=== PATIENT | male | born 1945 | race Caucasian/White ===

== ENCOUNTER 2017-09-11 21:58 | Emergency (ER) | payer MEDICARE, BC ==
[~2017-09-11] VITALS: Ht 170.2 cm; Wt 78.9 kg
[~2017-09-11 21:58] MED LIST: ASPIR 8181 MG ORAL; DIOVAN160 MG ORAL; DIOVAN40 MG PO; NORVASC10 MG PO; SYNTHROID25 MCG PO; TRICOR145 MG ORAL; TRICOR54 MG ORAL; TRICOR54 MG PO; UNOBMED; VICODIN 5-3001 EACH ORAL
[2017-09-11 22:10] VITALS: BP 132/72
[2017-09-11] MEDS ORDERED: HYDROmorphone 1mg/ml Carpuject IVP ONE (22:30)
[2017-09-11 22:54] LABS: BASOPHILS % (AUTO) 1.3 % (0.0-2.0); EOSINOPHILS % (AUTO) 3.4 % (0.0-3.0); LYMPHOCYTES % (AUTO) 24.3 % (20.0-45.0); MEAN CORPUSCULAR HEMOGLOBIN 29.2 PG (27.0-31.0); MEAN CORPUSCULAR HGB CONC 31.8 G/DL (32.0-36.0); MEAN CORPUSCULAR VOLUME 92 FL (80-99); MEAN PLATELET VOLUME 6.1 FL (6.5-10.1); MONOCYTES % (AUTO) 10.6 % (1.0-10.0); NEUTROPHILS % (AUTO) 60.4 % (45.0-75.0); PLATELET COUNT 201 K/UL (150-450); RED CELL DISTRIBUTION WIDTH 11.5 % (11.6-14.8); WHITE BLOOD COUNT 6.7 K/UL (4.8-10.8)
[2017-09-11 23:09] LABS: ALANINE AMINOTRANSFERASE 36 U/L (12-78); ALBUMIN/GLOBULIN RATIO 1.1 (1.0-2.7); ANION GAP 9 mmol/L (5-15); ASPARTATE AMINO TRANSFERASE 24 U/L (15-37); CALCIUM 9.4 MG/DL (8.5-10.1); CARBON DIOXIDE 27 MMOL/L (21-32); CHLORIDE 108 MMOL/L (98-107); CREATININE 1.4 MG/DL (0.55-1.30); LIPASE 103 U/L (73-393); POTASSIUM 4.2 MMOL/L (3.5-5.1); SODIUM 144 MMOL/L (136-145); TOTAL PROTEIN 7.5 G/DL (6.4-8.2)
[2017-09-12] MEDS ORDERED: HYDROmorphone 1mg/ml Carpuject IVP ONE
[2017-09-12] MEDS ORDERED: Doxazosin 4mg tab ORAL ONE (02:44)
[2017-09-12 03:15] VITALS: BP 124/78
[2017-09-12 05:56] VITALS: BP 137/68
[2017-09-12] MEDS ORDERED: Doxazosin 4mg tab ORAL SCH (09:00)
--- NOTE | 2017-09-12 09:06 | Diagnostic Imaging Report ---
Indication: Abdominal pain Technique: Supine view of the abdomen Comparison: 08/05/2016 Findings: Density projected over the the iliac bone presumably represents patient's ileostomy. Surgical clips are seen in the pelvis. A surgical clip is seen in the left upper quadrant. There is a paucity of bowel gas. No gaseous distention of large or small bowel demonstrated. Degenerative changes of the lumbar spine and hips are incidentally noted. Impression: Postsurgical changes, as described No acute process
--- NOTE | 2017-09-12 09:08 | Diagnostic Imaging Report ---
Indication: Pain Technique: 3 views of the lumbar spine Comparison: None Findings:Vertebral body heights are preserved. There is mild multilevel degenerative disc narrowing, somewhat more extensive degenerative proliferative change. Bony alignment is normal. No acute fractures. No dislocations. Sacroiliac joint spaces are clear. Sacral arches are preserved. Surgical clips are seen in the pelvis Impression:Mild degenerative changes, as described No acute bony trauma
--- NOTE | 2017-09-13 07:01 | Emergency Room Report ---
History of Present Illness General Chief Complaint: Abdominal Pain Source: Patient Present Illness HPI 72-year-old male presents ED complaining of abdominal pain. Patient states that he has a colostomy and states that it is blocked. Started approximately 8 hours ago. Patient states he must have eaten a large piece of food which caused this. He states this has happened several times in the past. Patient states he comes to emergency room for IV fluids and pain medications and allowed to rest. Patient states he does not want to be admitted. Patient states pain is an 8/10, sharp, nonradiating. Denies fevers or chills. Denies nausea or vomiting. States his GI doctor is Dr. Ernandez. No other aggravating relieving factors. Denies any other system symptoms Allergies: Coded Allergies: No Known Allergies (Unverified , 10/25/12) Patient History Past Medical History: other Past Surgical History: other - colostomy Pertinent Family History: none Social History: Denies: smoking, alcohol use, drug use Immunizations: UTD Reviewed Nursing Documentation: PMH: Agreed, PSxH: Agreed Nursing Documentation-PMH Past Medical History: No History, Except For Hx Cardiac Problems: Yes Hx Hypertension: Yes Hx Cancer: No Hx Gastrointestinal Problems: Yes - Pain abd area Hx Neurological Problems: No Review of Systems All Other Systems: negative except mentioned in HPI Physical Exam Vital Signs Date Time Temp Pulse Resp B/P (MAP) Pulse Ox O2 Delivery O2 Flow Rate FiO2 09/11/17 22:04 97.9 60 17 132/72 100 Room Air Sp02 EP Interpretation: reviewed, normal General Appearance: no apparent distress, alert, GCS 15, non-toxic Head: normocephalic Eyes: bilateral eye normal inspection, bilateral eye PERRL ENT: normal ENT inspection Neck: normal inspection Respiratory: chest non-tender, lungs clear, normal breath sounds, speaking full sentences Cardiovascular #1: regular rate, rhythm, no edema Gastrointestinal: normal bowel sounds, soft, non-distended, no guarding, no rebound, tenderness, other - ostomy Rectal: deferred Genitourinary: no CVA tenderness Musculoskeletal: normal inspection Neurologic: alert, oriented x3, responsive, motor strength/tone normal, sensory intact, speech normal Psychiatric: judgement/insight normal, memory normal, mood/affect normal, no suicidal/homicidal ideation Skin: normal inspection Lymphatic: normal inspection Medical Decision Making Diagnostic Impression: Primary Impression: SBO ER Course Hospital Course 72-year-old M presents to ED with abdominal pain. says his colostomy is blocked Differential diagnosis includes- chronic pain, small bowel obstruction, gastritis, Clinical course Patient placed on stretcher. After initial history and physical I ordered labs , IV fluids, pain medications and KUB Labs - no leukocytosis, electrolytes ok, LFTs normal KUB unremarkable, postsurgical changes Lspine unremarkable patient given IVFs, pain medications allowed to rest. I spoke to Dr Ernandez; he knows this patient well and states once a year he comes for IV hydration and pain medications. He agrees unless there are any acute findings patient can be discharged home patient feels better in AM wishes to be discharged I feel this is a highly complex case requiring extensive working including EKG/ Rhythm strip, Xray/CT/US, Blood/urine lab work, repeat exams while in ED, and administration of strong opiates/narcotics for pain control, admission to hospital or close patient follow up. Diagnosis - SBO Stable and discharged to home. Followup with PMD. Return to ED if symptoms recur or worsen Labs Test 09/11/17 22:30 White Blood Count 6.7 K/UL (4.8-10.8) Red Blood Count 4.20 M/UL (4.70-6.10) Hemoglobin 12.3 G/DL (14.2-18.0) Hematocrit 38.7 % (42.0-52.0) Mean Corpuscular Volume 92 FL (80-99) Mean Corpuscular Hemoglobin 29.2 PG (27.0-31.0) Mean Corpuscular Hemoglobin Concent 31.8 G/DL (32.0-36.0) Red Cell Distribution Width 11.5 % (11.6-14.8) Platelet Count 201 K/UL (150-450) Mean Platelet Volume 6.1 FL (6.5-10.1) Neutrophils (%) (Auto) 60.4 % (45.0-75.0) Lymphocytes (%) (Auto) 24.3 % (20.0-45.0) Monocytes (%) (Auto) 10.6 % (1.0-10.0) Eosinophils (%) (Auto) 3.4 % (0.0-3.0) Basophils (%) (Auto) 1.3 % (0.0-2.0) Sodium Level 144 MMOL/L (136-145) Potassium Level 4.2 MMOL/L (3.5-5.1) Chloride Level 108 MMOL/L (98-107) Carbon Dioxide Level 27 MMOL/L (21-32) Anion Gap 9 mmol/L (5-15) Blood Urea Nitrogen 28 mg/dL (7-18) Creatinine 1.4 MG/DL (0.55-1.30) Estimat Glomerular Filtration Rate mL/min (>60) Glucose Level 108 MG/DL (74-106) Calcium Level 9.4 MG/DL (8.5-10.1) Total Bilirubin 0.3 MG/DL (0.2-1.0) Aspartate Amino Transf (AST/SGOT) 24 U/L (15-37) Alanine Aminotransferase (ALT/SGPT) 36 U/L (12-78) Alkaline Phosphatase 67 U/L (46-116) Total Protein 7.5 G/DL (6.4-8.2) Albumin 3.9 G/DL (3.4-5.0) Globulin 3.6 g/dL Albumin/Globulin Ratio 1.1 (1.0-2.7) Lipase 103 U/L (73-393) Other X-Ray Diagnostic Results Other X-Ray Diagnostic Results #1: X-Ray ordered: KUB # of Views/Limited Vs Complete: 1 View Indication: Pain EP Interpretation: Yes Interpretation: nonspecific bowel gas, no sbo Impression: No acute disease Electronically Signed by: Electronically signed by Flip Bejarano MD Other X-Ray Diagnostic Results #2: X-Ray ordered: L spine # of Views/Limited Vs Complete: Complete Indication: Pain EP Interpretation: Yes Interpretation: no dislocation, no soft tissue swelling, no fractures Impression: No acute disease Electronically Signed by: Electronically signed by Flip Bejarano MD Last Vital Signs Date Time Temp Pulse Resp B/P (MAP) Pulse Ox O2 Delivery O2 Flow Rate FiO2 09/12/17 05:56 98.2 63 20 137/68 93 Room Air Status: improved Disposition: HOME, SELF-CARE Condition: Stable Patient Instructions: Small Bowel Obstruction, [id number] FLIP BEJARANO M.D. Sep 13, 2017 07:01
== END 2017-09-12 06:00 | disposition home or self-care (01) ==
LOC: EMR 22:25
DX: K56.609 Unspecified intestinal obstruction, unspecified as to partial versus complete obstruction (principal); I10 Essential (primary) hypertension; Z93.3 Colostomy status
CPT/HCPCS: 36415; 72020; 74000; 80053; 83690; 85025; 96361; 96374; 96375; 96376; 99284; J1170; J2405

== ENCOUNTER 2018-02-03 05:27 | Emergency (ER) | payer MEDICARE, BC ==
[~2018-02-03] VITALS: Ht 170.2 cm; Wt 77.1 kg
[2018-02-03] MEDS ORDERED: HYDROmorphone 1mg/ml Carpuject ONE ×2 (06:13→07:23)
--- NOTE | 2018-02-03 06:13 | Emergency Room Report ---
History of Present Illness General Chief Complaint: Abdominal Pain Present Illness HPI Patient is a 73-year-old male who presents after increased abdominal pain distention. Patient gradual onset of symptoms. Patient states that earlier in the day he had eaten a health bar which had irritated his intestines. Patient prior history of ulcerative colitis. He reports having prior colectomy and has a colostomy. He reported having some Ambien earlier in the day. He denied any fever. He reported having some increased abdominal distention and cramping. He denies any vomiting.Patient was noted to have previous visits with similar symptoms. (Rafael Astudillo) Allergies: Coded Allergies: No Known Allergies (Unverified , 10/25/12) Patient History Past Medical History: see triage record Reviewed Nursing Documentation: PMH: Agreed, PSxH: Agreed (Rafael Astudillo) Nursing Documentation-PMH Hx Cardiac Problems: Yes Hx Hypertension: Yes Hx Cancer: No Hx Gastrointestinal Problems: Yes - Pain abd area,COLOSTOMY Hx Neurological Problems: No (Rafael Astudillo) Review of Systems Constitutional: Denies: fever Respiratory: Denies: shortness of breath Cardiovascular: Denies: chest pain Neurological: Denies: focal weakness Endocrine: Denies: excessive sweating All Other Systems: limited (Rafael Astudillo) Physical Exam Vital Signs Date Time Temp Pulse Resp B/P (MAP) Pulse Ox O2 Delivery O2 Flow Rate FiO2 02/03/18 05:32 98.0 65 16 157/76 94 Room Air 98.1 Sp02 EP Interpretation: reviewed, normal General Appearance: normal inspection, well appearing, no apparent distress, alert, GCS 15 Head: atraumatic ENT: normal ENT inspection, hearing grossly normal, normal voice Neck: normal inspection, full range of motion, supple, no bony tend Respiratory: normal inspection, lungs clear, normal breath sounds, no respiratory distress, no retraction, no wheezing Cardiovascular #1: regular rate, rhythm, no edema Gastrointestinal: normal inspection, soft, no guarding, no hernia, other - mild distention, decreased bowel sounds Genitourinary: no CVA tenderness Musculoskeletal: normal inspection, back normal, normal range of motion Neurologic: normal inspection, alert, responsive, speech normal Psychiatric: normal inspection, judgement/insight normal, mood/affect normal Skin: normal inspection, normal color, no rash (Rafael Astudillo) Medical Decision Making Diagnostic Impression: Primary Impression: Abdominal pain Additional Impression: Colostomy in place ER Course Patient presented for abdominal pain. Differential diagnoses included ischemic bowel, appendicitis, perforated viscus, abdominal aortic aneurysm, inferior myocardial infarction, viral gastroenteritis Because of complexity of patient's case laboratory testing and imaging studies were ordered.The patient was given IV pain medications as well as IV Toradol.Laboratory testing was notable for normal white blood count with slight left shift. Patient was advised of findings. KUB showed nonspecific bowel gas pattern.Patient was endorsed to Dr. Alonzo pending urinalysis Labs Test 02/03/18 06:25 White Blood Count 9.1 K/UL (4.8-10.8) Red Blood Count 4.49 M/UL (4.70-6.10) Hemoglobin 13.6 G/DL (14.2-18.0) Hematocrit 39.9 % (42.0-52.0) Mean Corpuscular Volume 89 FL (80-99) Mean Corpuscular Hemoglobin 30.3 PG (27.0-31.0) Mean Corpuscular Hemoglobin Concent 34.1 G/DL (32.0-36.0) Red Cell Distribution Width 11.8 % (11.6-14.8) Platelet Count 173 K/UL (150-450) Mean Platelet Volume 7.5 FL (6.5-10.1) Neutrophils (%) (Auto) 82.2 % (45.0-75.0) Lymphocytes (%) (Auto) 10.1 % (20.0-45.0) Monocytes (%) (Auto) 5.9 % (1.0-10.0) Eosinophils (%) (Auto) 1.3 % (0.0-3.0) Basophils (%) (Auto) 0.6 % (0.0-2.0) Sodium Level 143 MMOL/L (136-145) Potassium Level 4.3 MMOL/L (3.5-5.1) Chloride Level 109 MMOL/L (98-107) Carbon Dioxide Level 29 MMOL/L (21-32) Anion Gap 5 mmol/L (5-15) Blood Urea Nitrogen 18 mg/dL (7-18) Creatinine 1.1 MG/DL (0.55-1.30) Estimat Glomerular Filtration Rate mL/min (>60) Glucose Level 131 MG/DL (74-106) Calcium Level 9.0 MG/DL (8.5-10.1) Total Bilirubin 0.4 MG/DL (0.2-1.0) Aspartate Amino Transf (AST/SGOT) 18 U/L (15-37) Alanine Aminotransferase (ALT/SGPT) 28 U/L (12-78) Alkaline Phosphatase 69 U/L (46-116) Total Protein 7.1 G/DL (6.4-8.2) Albumin 3.8 G/DL (3.4-5.0) Globulin 3.3 g/dL Albumin/Globulin Ratio 1.2 (1.0-2.7) Lipase 81 U/L (73-393) (Rafael Astudillo) ER Course Patient signed out to me by Dr. Astudillo at 6:30. Labs indicate no leukocytosis, H&H is stable, no metabolic abnormalities. ER evaluation of abdominal ultrasound does not show any dilated loops of bowel, no air-fluid levels. Patient feels better, wants to leave and follow up with his doctor. nO other issues in the ER ER course: Patient has remained stable during ED stay. Disposition: Patient is to be discharged to home. Patient is instructed to follow up with their primary care doctor within 5 days. Strict return precautions discussed with patient such as fever, chills, worsening/severe pain, nausea, vomiting, which may indicate severe illness. Patient verbalizes understanding and agrees with plan. Please note that this Emergency Department Report was dictated using [employer] manager technology software, occasionally this can lead to erroneous entry secondary to interpretation by the dictation equipment (MITCHEL ALONZO M.D.) Last Vital Signs Date Time Temp Pulse Resp B/P (MAP) Pulse Ox O2 Delivery O2 Flow Rate FiO2 02/03/18 05:32 98.0 65 16 157/76 94 Room Air 98.1 Status: improved (Rafael Astudillo) Status: improved (MITCHEL ALONZO M.D.) Disposition: HOME, SELF-CARE Condition: Stable Rafael Astudillo Feb 03, 2018 06:12 MITCHEL ALONZO M.D. Feb 03, 2018 10:27
[2018-02-03] MEDS: HYDROmorphone 1 MG in NS 55 ML IV ONE (06:22)
[2018-02-03] MEDS: Ketorolac 30mg Inj IV ONE (06:30)
[2018-02-03 07:15] LABS: ANION GAP 5 mmol/L (5-15); BLOOD UREA NITROGEN 18 mg/dL (7-18); CARBON DIOXIDE 29 MMOL/L (21-32); CHLORIDE 109 MMOL/L (98-107); CREATININE 1.1 MG/DL (0.55-1.30); POTASSIUM 4.3 MMOL/L (3.5-5.1); SODIUM 143 MMOL/L (136-145)
[2018-02-03 07:19] LABS: ALANINE AMINOTRANSFERASE 28 U/L (12-78); ALBUMIN 3.8 G/DL (3.4-5.0); ALBUMIN/GLOBULIN RATIO 1.2 (1.0-2.7); ALKALINE PHOSPHATASE 69 U/L (46-116); ASPARTATE AMINO TRANSFERASE 18 U/L (15-37); BILIRUBIN,TOTAL 0.4 MG/DL (0.2-1.0)
[2018-02-03 07:25] LABS: BASOPHILS % (AUTO) 0.6 % (0.0-2.0); EOSINOPHILS % (AUTO) 1.3 % (0.0-3.0); HEMATOCRIT 39.9 % (42.0-52.0); HEMOGLOBIN 13.6 G/DL (14.2-18.0); LYMPHOCYTES % (AUTO) 10.1 % (20.0-45.0); MEAN CORPUSCULAR VOLUME 89 FL (80-99); MONOCYTES % (AUTO) 5.9 % (1.0-10.0); NEUTROPHILS % (AUTO) 82.2 % (45.0-75.0); PLATELET COUNT 173 K/UL (150-450); RED BLOOD COUNT 4.49 M/UL (4.70-6.10); RED CELL DISTRIBUTION WIDTH 11.8 % (11.6-14.8); WHITE BLOOD COUNT 9.1 K/UL (4.8-10.8)
[2018-02-03] MEDS: HYDROmorphone 1mg/ml Carpuject IVP ONE (07:25)
[2018-02-03 07:31] VITALS: BP 119/57
[2018-02-03] MEDS: D5 1/2NS w/KCl 20mEq 1,000 ML IV SCH (08:00)
[2018-02-03 08:21] VITALS: BP 106/54
[2018-02-03 10:20] VITALS: BP 124/78
--- NOTE | 2018-02-03 10:35 | Diagnostic Imaging Report ---
Indication: Mid abdominal pain x3 days Technique: Supine view of the abdomen Comparison: 09/11/2017 Findings: Right lower quadrant ostomy is again demonstrated. Surgical clips are again demonstrated in the pelvis and left upper quadrant. Bowel gas pattern is unremarkable. No unusual masses or calcifications. No significant interim change Impression: No acute process
[2018-02-03 11:23] LABS: APPEARANCE,URINE SLIGHTLY CLOUDY; BILIRUBIN, URINE NEGATIVE (NEGATIVE); GLUCOSE, URINE (UA) NEGATIVE (NEGATIVE); KETONES,URINE NEGATIVE (NEGATIVE); LEUKOCYTE ESTERASE ,URINE 1+ (NEGATIVE); NITRITE,URINE NEGATIVE (NEGATIVE); PH,URINE 5 (4.5-8.0); PROTEIN,URINE 1+ (NEGATIVE); UROBILINOGEN,URINE NORMAL MG/DL (0.0-1.0)
[2018-02-03 11:27] LABS: COLOR,URINE YELLOW
== END 2018-02-03 10:23 | disposition home or self-care (01) ==
LOC: EMR 06:14
DX: R10.9 Unspecified abdominal pain (principal); Z93.3 Colostomy status; I10 Essential (primary) hypertension
CPT/HCPCS: 36415; 74018; 80053; 81003; 83690; 85025; 96374; 96375; 99284; J1170; J1885; J2405

== ENCOUNTER 2018-05-11 12:21 | Emergency (ER) | payer MEDICARE, BC ==
[~2018-05-11] VITALS: Ht 170.2 cm; Wt 78.0 kg
[2018-05-11 12:30] VITALS: BP 160/90
[2018-05-11] MEDS ORDERED: Morphine Sulfate 4mg/ml Inj IV ONE (13:00)
[2018-05-11 13:51] LABS: APPEARANCE,URINE CLOUDY; BILIRUBIN, URINE NEGATIVE (NEGATIVE); COLOR,URINE PALE YELLOW; GLUCOSE, URINE (UA) NEGATIVE (NEGATIVE); KETONES,URINE NEGATIVE (NEGATIVE); LEUKOCYTE ESTERASE ,URINE 3+ (NEGATIVE); NITRITE,URINE NEGATIVE (NEGATIVE); PH,URINE 7 (4.5-8.0); PROTEIN,URINE 3+ (NEGATIVE); UROBILINOGEN,URINE NORMAL MG/DL (0.0-1.0)
--- NOTE | 2018-05-11 13:59 | Emergency Room Report ---
History of Present Illness General Chief Complaint: Male Urogenital Problems Source: Patient Present Illness HPI 73 YO male presents to the ED c/o 05/30 in severity pain, dysuria and hematuria. Due to urinary catheter. Patient has a appointment with his urologist tomorrow. Catheter was placed because he had a nerve entrapment syndrome recently with require that he be catheterized. Patient states that he just needs his friends and he will remove the catheter himself. He denies fevers or chills. denies abdominal pain/tenderness. Denies CP, Palpitations, LOC , AMS, dizziness, Changes in Vision, Sensation, paresthesias, or a sudden severe headache. Allergies: Coded Allergies: No Known Allergies (Unverified , 10/25/12) Patient History Past Medical History: see triage record Past Surgical History: none Pertinent Family History: none Reviewed Nursing Documentation: PMH: Agreed; PSxH: Agreed Nursing Documentation-PMH Past Medical History: No History, Except For Hx Cardiac Problems: No Hx Hypertension: Yes Hx Cancer: No Hx Gastrointestinal Problems: Yes - Pain abd area,COLOSTOMY Hx Neurological Problems: No Review of Systems All Other Systems: negative except mentioned in HPI Physical Exam Vital Signs Date Time Temp Pulse Resp B/P (MAP) Pulse Ox O2 Delivery O2 Flow Rate FiO2 05/11/18 12:29 98.2 89 16 160/90 96 Room Air 98.2 Medical Decision Making PA Attestation Dr. Astudillo is my supervising Physician whom patient management has been discussed with. Diagnostic Impression: Primary Impression: Urinary catheter insertion/adjustment/removal Additional Impression: Hematuria Qualified Codes: R31.9 - Hematuria, unspecified ER Course 73 YO male presents to the ED c/o 05/30 in severity pain, dysuria and hematuria. Due to urinary catheter. Patient has a appointment with his urologist tomorrow. Catheter was placed because he had a nerve entrapment syndrome recently with require that he be catheterized. Patient states that he just needs his friends and he will remove the catheter himself. He denies fevers or chills. denies abdominal pain/tenderness. Denies CP, Palpitations, LOC , AMS, dizziness, Changes in Vision, Sensation, paresthesias, or a sudden severe headache. Ddx considered but are not limited to UTi , Pyelo, STI, Stone, Cystitis, urinary obstruction, urine retention, urethral strictures just to name a few. Vital signs: are WNL, pt. is afebrile H&PE are most consistent with [ ] ORDERS: - UA labs are attached ED INTERVENTIONS: None required at this time. DISCHARGE: At this time pt. is stable for d/c to home. Will provide printed patient care instructions, and any necessary prescriptions. Care plan and follow up instructions have been discussed with the patient prior to discharge. Labs Test 05/11/18 13:15 Urine Color Pale yellow Urine Appearance Cloudy Urine pH 7 (4.5-8.0) Urine Specific [place] 1.010 (1.005-1.035) Urine Protein 3+ (NEGATIVE) Urine Glucose (UA) Negative (NEGATIVE) Urine Ketones Negative (NEGATIVE) Urine Occult Blood 5+ (NEGATIVE) Urine Nitrite Negative (NEGATIVE) Urine Bilirubin Negative (NEGATIVE) Urine Urobilinogen Normal MG/DL (0.0-1.0) Urine Leukocyte Esterase 3+ (NEGATIVE) Urine RBC Tntc /HPF (0 - 0) Urine WBC Tntc /HPF (0 - 0) Urine Squamous Epithelial Cells Occasional /LPF Urine Bacteria Occasional /HPF (NONE) Last Vital Signs Date Time Temp Pulse Resp B/P (MAP) Pulse Ox O2 Delivery O2 Flow Rate FiO2 05/11/18 13:17 98.2 05/11/18 12:30 89 16 160/90 96 Room Air Disposition: HOME, SELF-CARE Condition: Stable Referrals: NOT CHOSEN IPA/MD,REFERRING (PCP) Patient Instructions: Hematuria, Adult Additional Instructions: Take medications as directed. Follow up with your UROLOGIST within 48 hours, even if your symptoms have resolved. --Please review list of primary care clinics, if you do not already have a primary care provider Return sooner to ED if new symptoms occur, or current symptoms become worse. - Please note that this Emergency Department Report was dictated using [employer] superintendent technology software, occasionally this can lead to erroneous entry secondary to interpretation by the dictation equipment. Soha Lucia May 11, 2018 13:59
[2018-05-11 14:15] VITALS: BP 167/96
== END 2018-05-11 14:06 | disposition home or self-care (01) ==
LOC: EMR 13:41
DX: Z46.6 Encounter for fitting and adjustment of urinary device (principal); R31.9 Hematuria, unspecified; I10 Essential (primary) hypertension
CPT/HCPCS: 81003; 87086; 96374; 99284; J2270

== ENCOUNTER 2020-07-10 02:15 | Emergency (ER) | payer MEDICARE, BC ==
[~2020-07-10] VITALS: Ht 170.2 cm; Wt 76.2 kg
[2020-07-10 02:30] VITALS: BP 164/98
[2020-07-10] MEDS ORDERED: Lidocaine HCl 2% Jelly 6ml Tube TOPIC ONE (02:32)
[2020-07-10] MEDS ORDERED: NITROFURANTOIN100 M2 ORAL ×2 (02:39)
--- NOTE | 2020-07-10 02:49 | Emergency Room Report ---
History of Present Illness General Chief Complaint: Male Urogenital Problems Source: Patient Present Illness HPI Patient is a 75-year-old male presents for increased suprapubic discomfort. Had previous history of urinary retention due to prostatic enlargement. Had previously been scheduled for TURP procedure next week. Had recent catheter removal but had been unable to urinate for several hours. Had previous history of colitis and had colostomy placement in the past. 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 COVID-19 Screening: Negative COVID-19 COVID-19 Testing Source: NA Patient History Past Medical History: see triage record Reviewed Nursing Documentation: PMH: Agreed; PSxH: Agreed Nursing Documentation-PMH Hx Cardiac Problems: No Hx Hypertension: Yes Hx Cancer: No Hx Gastrointestinal Problems: Yes - Pain abd area,COLOSTOMY Hx Neurological Problems: No Review of Systems All Other Systems: negative except mentioned in HPI Physical Exam Vital Signs Date Time Temp Pulse Resp B/P (MAP) Pulse Ox O2 Delivery O2 Flow Rate FiO2 07/10/20 02:23 97.9 88 20 194/77 (116) 99 Room Air General Appearance: well appearing, no apparent distress, alert, GCS 15 Head: normocephalic, atraumatic ENT: hearing grossly normal, normal voice Neck: full range of motion, supple Respiratory: no respiratory distress, speaking full sentences Cardiovascular #1: normal inspection, no edema Gastrointestinal: normal inspection, soft Musculoskeletal: normal inspection, swelling, no calf tenderness Neurologic: alert, motor strength/tone normal, general neurologist III-XII nml as tested, oriented x3, normal gait Psychiatric: mood/affect normal Skin: no rash Medical Decision Making Diagnostic Impression: Primary Impression: Urinary retention ER Course Patient presented for suprapubic pain. Differential diagnosis include was not limited to urinary retention, urinary tract infection, prosthetic hypertrophy among others. Patient has a benign exam and does not appear to require any imaging or laboratory testing at this time. Bedside ultrasound showed a distended bladder and patient does have some suprapubic fullness on exam. Coude catheter was placed By nursing staff. Patient tolerated procedure well. Patient be discharged home. Patient was of agreeable with discharge plan. Patient states he will follow-up with his urologist. He was advised return precautions. Is given prescription for Macrobid Last Vital Signs Date Time Temp Pulse Resp B/P (MAP) Pulse Ox O2 Delivery O2 Flow Rate FiO2 07/10/20 02:23 97.9 88 20 194/77 (116) 99 Room Air Status: improved Disposition: HOME, SELF-CARE Condition: Stable Scripts Nitrofurantoin Monohyd/M-Cryst* (MACROBID 100 MG*) 100 Mg Capsule 100 MG ORAL EVERY 12 HOURS, #14 CAP Prov: Rafael Astudillo MD 07/10/20 Patient Instructions: Acute Urinary Retention, Male Additional Instructions: Follow up with urology for recheck. Return if any fever, urinary retention or other concerns. Rafael Astudillo MD Jul 10, 2020 02:49
[2020-07-10 03:10] VITALS: BP 137/85
[2020-07-10 03:31] LABS: APPEARANCE,URINE CLEAR; BILIRUBIN, URINE NEGATIVE (NEGATIVE); COLOR,URINE PALE YELLOW; GLUCOSE, URINE (UA) NEGATIVE (NEGATIVE); KETONES,URINE NEGATIVE (NEGATIVE); LEUKOCYTE ESTERASE ,URINE NEGATIVE (NEGATIVE); NITRITE,URINE NEGATIVE (NEGATIVE); PH,URINE 5 (4.5-8.0); PROTEIN,URINE NEGATIVE (NEGATIVE); UROBILINOGEN,URINE NORMAL MG/DL (0.0-1.0)
[2020-07-11] MEDS ORDERED: SYNTHROID175 MCG ORAL (02:06)
[2020-07-11] MEDS ORDERED: BENICAR20 MG ORAL (02:06)
== END 2020-07-10 03:10 | disposition home or self-care (01) ==
LOC: EMR 02:48
DX: R33.9 Retention of urine, unspecified (principal); I10 Essential (primary) hypertension; N40.0 Benign prostatic hyperplasia without lower urinary tract symptoms
CPT/HCPCS: 51702; 81003; 99284